=== PATIENT | male | born 1965 | race Caucasian/White ===

== ENCOUNTER 2016-08-27 09:50 | Day surgery (SDC) | payer OTHER ==
[~2016-08-27] VITALS: Ht 182.9 cm; Wt 105.1 kg
[~2016-08-27 09:50] MED LIST: CeFAZolin Inj 2 GM in IV Premix 1 EACH IV ONE; GABA600T2 PO; Lactated Ringer's 1,000 ML IV SCH; NPR500T PO
[2016-08-27] MEDS ORDERED: fentaNYL-PF 50 mCg/mL 2 mL Inj ONE (09:51)
[2016-08-27] MEDS ORDERED: Propofol 10,000 mCg/mL 20 mL Inj ONE (09:51)
[2016-08-27 10:06] VITALS: BP 138/88; PULSE 64; RESP 14; O2SAT 96
[2016-08-27] MEDS ORDERED: Lactated Ringer's 1,000 ML IV ONE (10:12)
--- NOTE | 2016-08-27 11:36 | PCM.HPANE ---
Patient Data Surgeon Admitting Provider: Attending Provider:Christiano Ritchie MD Primary Care Physician:Pascale Jerome DO Other Provider:[place] Anesthesia Reason for Visit Umbilical Hernia Ht/WT & BMI Height (Feet): 6 Height (Inches): 0.00 Weight (Kilograms): 105.1 Body Mass Index 31.00 Allergies Coded Allergies: No Known Allergies (Verified , 08/26/16) Past Anesthesia History Anesthesia History: Denies:: Anesthesia Reactions, Malignant Hyperthermia Diabetes History Hx Diabetes?: No MRSA MRSA: No Medications Hypertension Medication: No (CURRENTLY ON NO MEDS) Home Meds Incl Beta Shant: No Reported Medications Gabapentin 600 Mg [id number] Mg PO TID Ref 0 08/26/16 Naproxen 500 Mg [id number] Mg PO BID PRN For Pain Ref 0 08/26/16 Discontinued Reported Medications Meloxicam-Expunged Drug, Do Not Renew! (Mobic-Expunged Drug, Do Not Renew!)15 Mg [id number] Mg PO PRN as needed 03/11/10 Methocarbamol-Expunged Drug, Do Not Renew! 500 Mg [id number] Mg PO PRN every 6 hours as needed 03/11/10 Lisinopril-Expunged Drug, Do Not Renew! 10 Mg [id number] Mg PO AM Hold AM of surgery 12/23/07 Atenolol-Expunged Drug, Do Not Renew! 25 Mg [id number] Mg PO AM 12/23/07 History History of ENT Problems?: No Hx of Heart Problems?: Yes Cardiovascular History: Positive for:: Hypertension Denies:: Cardiac Surgery Chest Pain Congestive Heart Failure Edema Heart Murmur Irregular Heartbeat Pacemaker Thrombophlebitis Hx of Respiratory Problem?: Yes Respiratory History: Positive for:: Use of C-PAP Machine (OLD RECORD INDICATES JEFF+ NO CPAP USE) Hx Neurologic Problems?: Yes Neurological History: Positive for:: Dizziness (due to back problems) Hx of GI Problems?: Yes Other GI Pertinent History: S/P APPY, LT INGUINAL HERNIA RPR AN ,RT INGUINAL HERNIA RPR 1986 UMBILICAL HERNIA=CURRENT PROBLEM C/OF INTERMITTANT ABD PAIN R/T HERNIA Hx of Problems?: No Male Hx: Denies:: Prostate Problems Scrotal Mass Testicular Surgery Skin History: Denies:: History Skin Disorders? Pressure Ulcers Hx Musculoskeletal Problems?: Yes Musculoskeletal History: Positive for:: Back Injury (C/OF CHRONIC LOWER BACK PAIN) Joint Replacement (S/P LT UNI KNEE ARTHROPLASTY) Musculoskeletal Trauma (C/OF RECENT LT TOE INJURY-NO FX BY XRAY S/P LT KNEE MENISECTOMY) Hx of Psycho/Social Problems?: No Hx Surgeries?: Yes (LT KNEE MENISECTOMY,LT UNI KNEE,APPY,B/L INGUINAL HERNIA RPR'S) Hx Any Other Health Problems?: Yes Other History: Denies:: Cancer Endocrine Disease Hospitalization Thyroid Disease History Blood Transfusions: Denies:: Blood Transfuse Reaction Blood Transfusions Hx Diabetes: No Hx Alcohol Use: YesAlcoholic Drinks Per Day: 1/WEEKHx Substance Use: NoHave You Smoked inLast 12 mo: No Stop/Bang S-Snoring: Do You Snore Loudly: No T-Tired: feel tired, fatigued: No O-Obsered: Observed not breath: No P-Blood Pressure: treated: Yes B- Body Mass Index > 35 kg/m2: No A- Age over 50: No N- Neck Large Circumference: Yes G- Gender Male: Yes JEFF Total Score: 3 Risk Assessment Category Category 1A: Patient has history of documented sleep apnea, and HAS NOT received any narcotic, sedative or anesthesia administration during this stay. Category 1B: Patient has history of documented sleep apnea, and HAS received any narcotic , sedative or anesthesia administration during this stay Category 2: Patient has SUSPECTED Obstructive Sleep Apnea, and HAS received any narcotic , sedative or anesthesia administration during this stay. Category 3: Patient has SUSPECTED Obstructive Sleep Apnea and HAS NOT received narcotic, sedative or anesthesia administration during this stay. Category 4: Outpatient in Procedural Areas with known sleep apnea or who screen positive for High Risk via the STOP/BANG questionnaire. Exam Exam Vital Signs Vital Signs Date Time Temp Pulse Resp B/P Pulse Ox O2 Delivery O2 Flow Rate FiO2 08/27/16 10:06 36.6 64 14 138/88 96 Room Air General Appearance: Alert, Oriented X3, Cooperative, No Acute Distress HEENT/AIRWAY: MP 2 Lungs: Clear to Auscultation, Normal Air Movement Heart: Exam Unremarkable, Regular Rate/Rhythm, No Murmurs/Rubs/Gallops Meds/Labs/Diagnostics Admission Meds Current Medications Lactated Ringer's (Lr) 1,000 ml @ ud STK-MED ONCE IV Last administered on 08/27t 10:12; Start 08/27/16 at 10:12; Stop 08/27/16 at 10:13; Status DC Plan Impression Patient chart reviewed, patient interviewed and anesthestic plan with risks, benefits, and alternatives discussed, and informed consent obtained. NPO Status: confirmed before mn ASA Physical Status: ASA2 Mod Systemic Disease Anesthetic Plan: GA Bene/Risks/Altern/Consents: Yes HP Complete Prior to Induction: Yes Hardy Calero MD Aug 27, 2016 10:41
[2016-08-27] MEDS ORDERED: Ondansetron 2 mg/mL 2 mL Inj IVPUSH PRN (12:00)
[2016-08-27] MEDS ORDERED: Lactated Ringer's 1,000 ML IV SCH (12:00)
[2016-08-27] MEDS ORDERED: HYDROmorphone 1 mg/mL Inj IVPUSH PRN (12:00)
[2016-08-27] MEDS ORDERED: EPHEDrine Sulfate 50 mg/mL Inj IVPUSH PRN (12:00)
[2016-08-27] MEDS ORDERED: Dexamethasone 4 mg/mL Inj IVPUSH PRN (12:00)
[2016-08-27] MEDS ORDERED: fentaNYL-PF 50 mCg/mL 2 mL Inj IVPUSH PRN (12:00)
[2016-08-27] MEDS ORDERED: Phenylephrine 10,000 mCg/mL Inj IVPUSH PRN (12:00)
[2016-08-27] MEDS ORDERED: MetoCLOpramide 5 mg/mL 2 mL Inj IVPUSH PRN (12:00)
[2016-08-27] MEDS ORDERED: Lactated Ringer's 500 ML IV PRN (12:00)
[2016-08-27] MEDS ORDERED: Bupivacaine-MPF 0.25% 30 mL Inj INFILTRATE ONE (12:08)
[2016-08-27 12:35] VITALS: BP 122/89; PULSE 72; RESP 12; O2SAT 94
--- NOTE | 2016-08-27 13:26 | PCM.ANEP1 ---
Post Anesthesia Phase 1 PACU Phase 1 Assessment Vital Signs Vital Signs Date Time Temp Pulse Resp B/P Pulse Ox O2 Delivery O2 Flow Rate FiO2 08/27/16 10:06 36.6 64 14 138/88 96 Room Air Anesthetic Administered: MAC Level of Alertness: Awake, talking STYLES's with Equal Strength: Yes Pain: No Nausea or Vomiting: No Oxygen Delivery: Room Air Lungs: Clear to Auscultation, Normal Air Movement Dermatome Level: Full Sensation Hardy Calero MD Aug 27, 2016 13:26
--- NOTE | 2016-08-27 13:26 | PCM.ANEP2 ---
Post Anesthesia Evaluation ASA/CMS Post Anesthesia VS in Patient's Normal Range?: Yes Resp Stable; Airway Patent?: Yes CV Function & Hydration Stable: Yes Mental Status Recovered?: Yes Pain control Satisfactory?: Yes N/V Control Satisfactory?: Yes Hardy Calero MD Aug 27, 2016 13:26
--- NOTE | 2016-08-27 13:28 | OP ---
[address] [address] OPERATIVE REPORT PATIENT: JOHAN DEWITT : 1965 MR#: [id number] ADMIT: 08/27/2016 JOB ID: [id number] DATE OF SURGERY: 08/27/2016 ANESTHESIA: MAC with local. PREOPERATIVE DIAGNOSIS(ES): Symptomatic umbilical hernia. POSTOPERATIVE DIAGNOSIS(ES): Symptomatic umbilical hernia. OPERATIVE PROCEDURE: Open repair of umbilical hernia with mesh. SURGEON: Christiano Ritchie MD. ASSISTANTS: Trung Pettit PA-C (the periodontal assistant was required for the safe and timely completion of the case) and NIMA Andrade. COMPLICATIONS: None. ESTIMATED BLOOD LOSS: Minimal. CONDITION: Satisfactory. SPECIMEN: None. FINDINGS: There was an approximately 1 cm fascial defect. This was repaired with a small Ventralex patch. INDICATIONS/SIGNIFICANT HISTORY: The patient is a 51-year-old man who several months ago noted a lump just to the right of the umbilicus. It was becoming increasingly uncomfortable and slowly increasing in size. He was referred to [place] and eventually diagnosed with an umbilical hernia. He elected to undergo operative repair. OPERATIVE TECHNIQUE: The patient was taken to the operating room and placed in supine position. Light sedation was administered, and perioperative antibiotics were given. The abdomen was prepped and draped in a standard surgical fashion, and a procedural pause was performed. The surgical area was anesthetized using a local anesthetic. A curvilinear infraumbilical incision was made and dissection carried down through skin and subcutaneous tissue. The umbilical stalk was circumferentially dissected free and transected, revealing the fascial defect. The hernia contents were reduced, and the fascia cleared. A small Ventralex patch was inserted through the fascial defect, so it lay in an underlay fashion. This was incorporated into a transverse closure using 0 Prolene sutures in a horizontal mattress. The umbilicus was then tacked down to the fascia using a 3-0 PDS. Then, 3-0 PDS deep dermals were placed, followed by a running 4-0 Monocryl. The entire procedure was well tolerated without complication.
[2016-08-27 13:41] VITALS: BP 117/78; PULSE 65; RESP 12; O2SAT 96
== END 2016-08-27 23:59 | disposition home or self-care (01) ==
LOC: SAS 09:50
PROVIDERS: ATTEND General Practice
DX: K42.9 Umbilical hernia without obstruction or gangrene (principal); I10 Essential (primary) hypertension; G47.33 Obstructive sleep apnea (adult) (pediatric); M54.9 Dorsalgia, unspecified
CPT/HCPCS: 49585; C1781; J0690; J2250; J3010; J7120